=== PATIENT | male | born 1960 | race Caucasian/White ===

== ENCOUNTER 2018-02-20 09:29 | Emergency (ER) | payer MEDICARE, MEDICAID | END 2018-02-20 10:20 | disposition home or self-care (01) | LOC: BURERS 09:29 | DX: R33.9 Retention of urine, unspecified (principal); Z79.01 Long term (current) use of anticoagulants; Z79.899 Other long term (current) drug therapy | CPT/HCPCS: 51798 ==

== ENCOUNTER 2019-05-05 12:10 | Emergency (ER) | payer MEDICARE, MEDICAID | END 2019-05-05 12:50 | disposition home or self-care (01) | LOC: BURERS 12:10 | DX: Z46.6 Encounter for fitting and adjustment of urinary device (principal); F41.9 Anxiety disorder, unspecified | CPT/HCPCS: 51705 ==

== ENCOUNTER 2020-05-05 19:42 | Emergency (ER) | payer MEDICARE, MEDICAID | END 2020-05-05 21:10 | disposition home or self-care (01) | LOC: BURERS 19:42 | DX: T83.091A Other mechanical complication of indwelling urethral catheter, initial encounter (principal); K21.9 Gastro-esophageal reflux disease without esophagitis; N40.0 Benign prostatic hyperplasia without lower urinary tract symptoms; E78.00 Pure hypercholesterolemia, unspecified; E78.5 Hyperlipidemia, unspecified; I10 Essential (primary) hypertension; I48.91 Unspecified atrial fibrillation; F41.9 Anxiety disorder, unspecified | CPT/HCPCS: 51705 ==

== ENCOUNTER 2020-05-10 19:35 | Emergency (ER) | payer MEDICARE, MEDICAID ==
[2020-05-10 19:59] LABS: #Basophils 0.2 thou/uL (0.0-0.2); #Eosinphils 0.1 thou/uL (0.0-0.7); #Lymphocytes 0.8 thou/uL (1.20-3.40); #Monocytes 0.9 thou/uL (0.11-0.59); #Neutrophils 9.1 thou/uL (1.40-6.50); %Basophils 1.6 % (0.0-1.0); %Eosinophils 0.6 % (0.0-10.0); %Lymphocytes 7.2 % (21.0-51.0); %Neutrophils 82.5 % (42.0-75.0); Hemoglobin 13.1 g/dL (14.0-18.0); Mean Corpuscular HGB CONC 31.6 g/dL (32.0-36.0); Mean Corpuscular Hemoglobin 27.1 pg (27.0-31.0); Mean Corpuscular Volume 85.7 fL (78.0-98.0); Platelet Count 123 thou/uL (130-400); RBC Distribution Width 14.2 % (11.5-14.5); Red Blood Cell (RBC) Count 4.84 mill/uL (4.70-6.10); White Blood Cell (WBC) Count 11.1 thou/uL (4.8-10.8)
[2020-05-10] MEDS ORDERED: Ibuprofen 200 MG TAB ONE (20:05)
[2020-05-10 20:16] LABS: ALT (SGPT) 39 U/L (8-55); AST (SGOT) 25 U/L (5-34); Albumin 3.8 g/dL (3.5-5.0); Alkaline Phosphatase 92 U/L (40-110); Anion Gap 17 mmol/L (10-20); BUN (Urea Nitrogen) 33 mg/dL (8.4-25.7); Bilirubin, Total 1.9 mg/dL (0.2-1.2); Calc. Creatinine Clearance 0 mL/min (70-130); Carbon Dioxide 25 mmol/L (22-29); Chloride 100 mmol/L (98-107); Globulin 3.2 g/dL (2.4-3.5); Glucose 120 mg/dL (70-105); Potassium 4.1 mmol/L (3.5-5.1); Sodium 138 mmol/L (136-145)
[2020-05-10 20:28] LABS: Bilirubin Negative (Negative); Blood, Urine Large (Negative); Clarity Cloudy (Clear); Glucose, Urine (Dipstick) Negative (Negative); Ketone, Urine Negative (Negative); Leukocyte Large (Negative); Nitrite Negative (Negative); Protein, Urine (Dipstick) > or equal to 300 mg/dL (Neg-Trace); Specific Gravity, Urine 1.025 (1.005-1.030)
[2020-05-10 20:34] LABS: Bacteria/HPF 3+ HPF (None Seen); Squamous Epithelial 0-3 HPF (0-3)
[2020-05-10] MEDS ORDERED: Acetaminophen 500 MG TAB ONE (20:35)
[2020-05-10] MEDS ORDERED: cefTRIAXone\\ROCEPHIN 1 GM VIAL ONE (20:39)
--- NOTE | 2020-05-10 20:45 | RAD ---
RIGHT KNEE FIVE VIEWS: 05/10/20 No fracture or joint effusion was seen. There are some mild to moderate degenerative changes medially consisting of slight joint space narrowing and osteophyte formation. IMPRESSION: No acute traumatic findings. POS: HOME
--- NOTE | 2020-05-10 20:49 | RAD ---
PORTABLE CHEST: 05/10/20 An AP portable film at 195 shows slight congestion of the vessels. The heart is mildly enlarged. No large effusions are seen, nor were there any focal pulmonary infiltrates. The trachea is midline. IMPRESSION: Cardiomegaly and mild vascular congestion. POS: HOME
== END 2020-05-10 23:13 | disposition short-term general hospital (02) ==
LOC: BURERS 19:35
DX: S80.01XA Contusion of right knee, initial encounter (principal); I48.91 Unspecified atrial fibrillation; N39.0 Urinary tract infection, site not specified; I10 Essential (primary) hypertension; K21.9 Gastro-esophageal reflux disease without esophagitis; N40.0 Benign prostatic hyperplasia without lower urinary tract symptoms; W19.XXXA Unspecified fall, initial encounter
CPT/HCPCS: 36415; 71045; 80053; 81003; 81015; 83605; 83880; 84484; 85025; 87040; 87077; 87086; 87186; 93005; 94760; 96374; 96375; J0696

== ENCOUNTER 2020-11-30 22:53 | Emergency (ER) | payer MEDICARE, MEDICAID | END 2020-12-01 00:58 | disposition home or self-care (01) | LOC: BURERS 22:53 | DX: Z46.6 Encounter for fitting and adjustment of urinary device (principal); K21.9 Gastro-esophageal reflux disease without esophagitis; N40.0 Benign prostatic hyperplasia without lower urinary tract symptoms; E78.5 Hyperlipidemia, unspecified; E78.00 Pure hypercholesterolemia, unspecified; I10 Essential (primary) hypertension; I48.91 Unspecified atrial fibrillation; F79 Unspecified intellectual disabilities | CPT/HCPCS: 43762; 51702 ==

== ENCOUNTER 2021-03-02 18:18 | Emergency (ER) | payer MEDICARE, MEDICAID | END 2021-03-02 21:05 | disposition home or self-care (01) | LOC: BURERS 18:18 | DX: T83.028A Displacement of other urinary catheter, initial encounter (principal); K21.9 Gastro-esophageal reflux disease without esophagitis; N40.0 Benign prostatic hyperplasia without lower urinary tract symptoms; E78.00 Pure hypercholesterolemia, unspecified; E78.5 Hyperlipidemia, unspecified; I10 Essential (primary) hypertension; I48.91 Unspecified atrial fibrillation | CPT/HCPCS: 99283 ==

== ENCOUNTER 2021-06-25 10:35 | Emergency (ER) | payer MEDICARE, MEDICAID ==
[2021-06-25 12:02] LABS: Bilirubin Negative (Negative); Blood, Urine Small (Negative); Clarity Turbid (Clear); Glucose, Urine (Dipstick) Negative (Negative); Ketone, Urine Negative (Negative); Leukocyte Large (Negative); Nitrite Negative (Negative); Protein, Urine (Dipstick) > or equal to 300 mg/dL (Neg-Trace)
[2021-06-25 12:05] LABS: #Basophils 0.1 thou/uL (0.0-0.2); #Lymphocytes 0.3 thou/uL (1.20-3.40); #Monocytes 0.8 thou/uL (0.11-0.59); #Neutrophils 7.4 thou/uL (1.40-6.50); %Basophils 0.7 % (0.0-1.0); %Eosinophils 0.1 % (0.0-10.0); %Lymphocytes 3.4 % (21.0-51.0); %Monocytes 9.2 % (0.0-10.0); %Neutrophils 86.6 % (42.0-75.0); Hemoglobin 12.4 g/dL (14.0-18.0); Mean Corpuscular HGB CONC 31.6 g/dL (32.0-36.0); Mean Corpuscular Hemoglobin 25.7 pg (27.0-31.0); Mean Corpuscular Volume 81.4 fL (78.0-98.0); Platelet Count 198 thou/uL (130-400); RBC Distribution Width 14.9 % (11.5-14.5); Red Blood Cell (RBC) Count 4.82 mill/uL (4.70-6.10); White Blood Cell (WBC) Count 8.5 thou/uL (4.8-10.8)
[2021-06-25 12:06] LABS: pH, Urine Greater/Equal 9.0 (5.0-9.0)
[2021-06-25 12:16] LABS: ALT (SGPT) 57 U/L (8-55); AST (SGOT) 34 U/L (5-34); Albumin 3.4 g/dL (3.5-5.0); Alkaline Phosphatase 92 U/L (40-110); Anion Gap 14 mmol/L (10-20); BUN (Urea Nitrogen) 25 mg/dL (8.4-25.7); Bilirubin, Total 1.1 mg/dL (0.2-1.2); Calc. Creatinine Clearance 0 mL/min (70-130); Calcium 9.1 mg/dL (7.8-10.44); Carbon Dioxide 27 mmol/L (22-29); Chloride 100 mmol/L (98-107); Globulin 3.4 g/dL (2.4-3.5); Glucose 105 mg/dL (70-105); Potassium 3.3 mmol/L (3.5-5.1); Protein, Total 6.8 g/dL (6.0-8.3); Sodium 138 mmol/L (136-145)
[2021-06-25 12:26] LABS: Bacteria/HPF 4+ HPF (None Seen); RBC/HPF 0-3 HPF (0-3); Squamous Epithelial 0-3 HPF (0-3); WBC/HPF Greater than 50 HPF (0-3)
[2021-06-25 12:27] LABS: Calcium Oxalate Crystals 1+ HPF (None Seen); Triple Phosphate Crystal 1+ HPF (None Seen)
[2021-06-25] MEDS ORDERED: Nystatin Cream 15 GM TUBE TOP SCH (12:45)
[2021-06-25 12:48] LABS: Bilirubin Negative (Negative); Blood, Urine Large (Negative); Clarity Cloudy (Clear); Glucose, Urine (Dipstick) Negative (Negative); Ketone, Urine Negative (Negative); Leukocyte Large (Negative); Nitrite Positive (Negative); Protein, Urine (Dipstick) 30 mg/dL (Neg-Trace); pH, Urine 6.5 (5.0-9.0)
[2021-06-25 12:59] LABS: Bacteria/HPF 3+ HPF (None Seen); RBC/HPF 21-50 HPF (0-3); Squamous Epithelial 0-3 HPF (0-3); WBC/HPF 21-50 HPF (0-3)
[2021-06-25] MEDS ORDERED: cefTRIAXone\\ROCEPHIN 2 GM VIAL ONE (13:09)
[2021-06-25 13:50] LABS: SARS-CoV-2 NAA Rapid Test DETECTED (NotDetected)
== END 2021-06-25 13:54 | disposition home or self-care (01) ==
LOC: BURERS 10:35
DX: U07.1 COVID-19 (principal); N39.0 Urinary tract infection, site not specified; K21.9 Gastro-esophageal reflux disease without esophagitis; E78.5 Hyperlipidemia, unspecified; E78.00 Pure hypercholesterolemia, unspecified; I10 Essential (primary) hypertension; I48.91 Unspecified atrial fibrillation
CPT/HCPCS: 80053; 81003; 81015; 83605; 85025; 87086; 96374; J0696; U0002

== ENCOUNTER 2021-07-16 09:36 | Emergency (ER) | payer MEDICARE, MEDICAID ==
[2021-07-16 10:12] LABS: #Lymphocytes 0.6 thou/uL (1.20-3.40); #Monocytes 1.2 thou/uL (0.11-0.59); #Neutrophils 6.4 thou/uL (1.40-6.50); %Basophils 0.5 % (0.0-1.0); %Eosinophils 0.1 % (0.0-10.0); %Monocytes 14.5 % (0.0-10.0); Hemoglobin 10.6 g/dL (14.0-18.0); Mean Corpuscular Hemoglobin 26.2 pg (27.0-31.0); Mean Corpuscular Volume 81.9 fL (78.0-98.0); Platelet Count 150 thou/uL (130-400); Red Blood Cell (RBC) Count 4.06 mill/uL (4.70-6.10); White Blood Cell (WBC) Count 8.2 thou/uL (4.8-10.8)
[2021-07-16 10:32] LABS: ALT (SGPT) 24 U/L (8-55); AST (SGOT) 20 U/L (5-34); Albumin 3.2 g/dL (3.5-5.0); Alkaline Phosphatase 148 U/L (40-110); Anion Gap 12 mmol/L (10-20); BUN (Urea Nitrogen) 19 mg/dL (8.4-25.7); Bilirubin, Total 2.2 mg/dL (0.2-1.2); Calc. Creatinine Clearance 0 mL/min (70-130); Calcium 8.8 mg/dL (7.8-10.44); Carbon Dioxide 26 mmol/L (22-29); Chloride 103 mmol/L (98-107); Globulin 3.7 g/dL (2.4-3.5); Glucose 106 mg/dL (70-105); Protein, Total 6.9 g/dL (6.0-8.3); Sodium 137 mmol/L (136-145)
== END 2021-07-16 12:33 | disposition short-term general hospital (02) ==
LOC: BURERS 09:36
DX: S82.241A Displaced spiral fracture of shaft of right tibia, initial encounter for closed fracture (principal); S82.61XA Displaced fracture of lateral malleolus of right fibula, initial encounter for closed fracture; I48.91 Unspecified atrial fibrillation; I11.0 Hypertensive heart disease with heart failure; I50.9 Heart failure, unspecified; K21.9 Gastro-esophageal reflux disease without esophagitis; E78.5 Hyperlipidemia, unspecified; E78.00 Pure hypercholesterolemia, unspecified; F79 Unspecified intellectual disabilities; W19.XXXA Unspecified fall, initial encounter; Z79.899 Other long term (current) drug therapy
CPT/HCPCS: 29515; 36415; 80053; 83880; 84484; 85025; 93005